=== PATIENT | female | born 1940 | race Caucasian/White ===

== ENCOUNTER 2019-05-20 21:59 | Emergency (ER) | payer OTHER ==
[~2019-05-20] VITALS: Ht 154.9 cm; Wt 42.9 kg
[2019-05-20] MEDS ORDERED: SUCCINYLCHOLINE CHLORIDE 20 MG/ML 10 ML VIAL ONE (22:02)
[2019-05-20] MEDS ORDERED: MethylPREDNISolone SOD SUCC 125 MG/2 ML VIAL ONE (22:02)
[2019-05-20] MEDS ORDERED: RAPID SEQUENCE KIT [RSI] 1 EACH KIT ONE (22:02)
[2019-05-20] MEDS: MethylPREDNISolone SOD SUCC 125 MG/2 ML VIAL IVP ONE (22:04)
[2019-05-20] MEDS: ALBUTEROL SULFATE 5 MG/ML 20 ML NEB SOLN [BULK] NEB ONE (22:07)
[2019-05-20] MEDS: IPRATROPIUM BROMIDE 0.5 MG/2.5 ML NEB SOLUTION NEB ONE (22:07)
[2019-05-20 22:20] LABS: BASOPHILS % (AUTO) 1.2 % (0.0-2.0); EOSINOPHILS % (AUTO) 7.3 % (1.0-6.0); HEMATOCRIT 46.2 % (36-46); HEMOGLOBIN 15.4 g/dL (12.0-16.0); LYMPHOCYTES # (AUTO) 2.4 K/uL (1.0-4.8); LYMPHOCYTES % (AUTO) 28.1 % (22.0-44.0); MEAN CORPUSCULAR HEMOGLOBIN 32.6 pg (26.0-34.0); MEAN CORPUSCULAR HGB CONC 33.3 G/dL (31.0-37.0); MEAN CORPUSCULAR VOLUME 98 fL (80-100); MONOCYTES # (AUTO) 0.4 K/uL (0.1-1.0); MONOCYTES % (AUTO) 4.6 % (2.0-9.0); NEUTROPHILS % (AUTO) 58.8 % (40.0-70.0); PLATELET COUNT (AUTO) 251 K/uL (150-450); RED BLOOD CELL COUNT(AUTO) 4.72 MIL/uL (4.00-5.20); RED CELL DISTRIBUTION WIDTH 13.6 % (11.5-14.5)
[2019-05-20] MEDS ORDERED: PANT20TA12 PO (22:26)
[2019-05-20] MEDS ORDERED: ESCI10TA PO (22:28)
[2019-05-20] MEDS ORDERED: ROFL500T PO (22:28)
[2019-05-20] MEDS ORDERED: MONT10TA24 PO (22:28)
[2019-05-20] MEDS ORDERED: AZITHROMYCIN 250 MG TABLET PO ONE (22:30)
[2019-05-20 22:32] LABS: CALCIUM, TOTAL 9.4 mg/dL (8.8-10.5); CREATININE 1.02 mg/dL (0.60-1.30); POTASSIUM 3.7 mmol/L (3.5-5.1)
[2019-05-20 22:41] LABS: LACTIC ACID 1.2 mmol/L (0.4-2.0)
[2019-05-20 22:44] LABS: ABG A-A DIFF O2 134.7 mmHg (10-20.0); ABG BASE EXCESS 1.6 mmol/L (-2.0-3.0); ABG CARBOXYHEMOGLOBIN 0.5 % (0.0-1.5); ABG HCO3 25.1 mmol/L (22.0-26.0); ABG METHEMOGLOBIN 0.5 % (0.0-1.5); ABG OXYGEN CONTENT 23.1 mL/dL (15.0-23.0); ABG OXYGEN SATURATION 99.7 % (95.0-98.0); ABG OXYHEMOGLOBIN 98.7 % (94.0-100.0); ABG PCO2 52 mmHg (35-45); ABG PH 7.342 (7.35-7.450); ABG TOTAL HEMOGLOBIN 15.6 G/dL (12.0-18.0); PO2, ARTERIAL BG 526.7 mmHg (75.0-83.0); SOURCE, BLOOD GAS ARTERIAL; TEMPERATURE, FAHRENHEIT, BG 98.6 FAHREN (96.0-98.6)
[2019-05-20 22:45] LABS: O2 DEVICE,BLOOD GAS BIPAP (ROOM AIR); SITE, BLOOD GAS RT RADIAL
[2019-05-20] MEDS: CefTRIAXone 1 GM/DEXTROSE 50 ML IV ONE (22:50)
[2019-05-20 22:57] LABS: ALBUMIN 4.5 g/dL (3.4-5.0); BILIRUBIN,TOTAL 1.4 mg/dL (0.1-1.0); TOTAL PROTEIN, SERUM 8.1 g/dL (6.4-8.2)
[2019-05-20] MEDS: AZITHROMYCIN 500 MG/NS 250 ML IV ONE (23:22)
[2019-05-21] MEDS: ALBUTEROL SULFATE 5 MG/ML 20 ML NEB SOLN [BULK] NEB ONE (00:22)
[2019-05-21 02:15] VITALS: BP 129/75
== END 2019-05-21 03:15 | disposition short-term general hospital (02) ==
LOC: EMS 22:01
DX: J44.1 Chronic obstructive pulmonary disease with (acute) exacerbation (principal); J20.9 Acute bronchitis, unspecified
CPT/HCPCS: 36415; 36600; 71045; 80053; 82550; 82805; 83605; 84484; 85025; 87040; 93005; 94640; 94644; 94660; 96365; 96368; 96375; 99291; J0456; J0696; J2930; J0330